=== PATIENT | male | born 1975 | race Caucasian/White ===

== ENCOUNTER 2017-01-23 12:32 | Emergency (ER) | payer MEDICAID ==
[2017-01-23 12:44] VITALS: BMI 26.4
[2017-01-23] MEDS ORDERED: Lidocaine 2% Inj (20ml) INFIL ONE (13:13)
--- NOTE | 2017-01-23 13:16 | C.PDOC ---
History Of Present Illness pt presents from PMD's office for incision and drainage to 2 abscess in the left axilla, have been increasing in size and pain for the last week. no prior episodes. no hx dm. no fever or chills. Time Seen by Provider: 01/23/17 13:04 Chief Complaint (Nursing): Abnormal Skin Integrity Past Medical History Vital Signs: Last Vital Signs Temp 98.2 F 01/23/17 14:02 Pulse 71 01/23/17 14:02 Resp 18 01/23/17 14:02 BP 120/69 01/23/17 14:02 Pulse Ox 100 01/23/17 14:32 - Medical History PMH: HTN, Hypercholesterolemia, Peripheral Edema ("LOCALIZED EDEMA"), Sleep Apnea (CPAP MACHINE @5CM H2O) Denies: Chronic Kidney Disease Surgical History: Coronary Stent (X3) - [facility] Procedures CONTRAST AORTOGRAM (06/19/14) INSERTION OF ONE VASCULAR STENT (06/19/14) INSRT OF DRUG-ELUTING CORON ARTERY STENTS(S) (06/19/14) LEFT HEART CARDIAC CATH (06/19/14) LT HEART ANGIOCARDIOGRAM (06/19/14) PERCUTANEOUS TRANSLUMINAL CORONARY ANGIOPLASTY [PTCA] (06/19/14) PROCEDURE ON SINGLE VESSEL (06/19/14) Family History: States: Unknown Family Hx - Social History Hx Alcohol Use: No (SOCIAL) Hx Substance Use: No - Immunization History Hx Tetanus Toxoid Vaccination: No Hx Influenza Vaccination: No Hx Pneumococcal Vaccination: No Physical Exam - Physical Exam Additional Physical Exam Comments: Constitutional: No acute distress. WDWN. Head: Normocephalic. Atraumatic. Eyes: PERRL. EOMI. ENT: Moist mucous membranes. Neck: Supple. Cardiovascular: Regular rate and rhythm. Chest: No tenderness. Respiratory: Clear to auscultation bilaterally. GI: Soft. Nontender. Nondistended. Normoactive bowel sounds. No rebound. No guarding. Back: No CVA and no mid-line tenderness. Musculoskeletal: No tenderness or swelling of extremities. Skin: . 2x1cm abscess to upper left axilla, flunctuant and surrounding erythema , 1cm pustular abscess to mid left axilla Neurologic: Alert, no focal deficit. ED Course And Treatment O2 Sat by Pulse Oximetry: 100 - Incision & Drainage Of Abscess Anesthesia: Lidocaine 2% Prep Used: Sterile Water, Betadine Procedure: Incised W/Scalpel Blade#: (11), Drained Pus, Irrigated Cavity W/ Saline, Probed To Break Up Loculations, Packed W/Gauze (1/4 packing) Medical Decision Making Medical Decision Making: pt with 2 abscesses in left axilla; distal abscess with scant drainage, proximal abscess about 1 ml pus; +erythema and warmth surrounding abscess, will start pt on antibiotics, with return to ed or pmd in 2 days for a wound check. Disposition Counseled Patient/Family Regarding: Diagnosis, Need For Followup, Rx Given - Disposition Referrals: India Mcqueen MD [Non-Staff] - Disposition: HOME/ ROUTINE Disposition Time: 13:49 Condition: IMPROVED Additional Instructions: Keep dressing on for next 2 days, unless becomes saturated, then remove and apply pressure and new dressing or return to ER for evaluaiton. Return to ER or PMD in 2 days for wound check. Take antibiotics and pain medications as directed. Prescriptions: Acetaminophen with Codeine [Tylenol with Codeine #3 Tablet] 1 each PO Q6 PRN #6 tablet PRN Reason: Pain, Severe (8-10) Cephalexin [cephalexin] 500 mg PO QID #28 cap Forms: [facility] (Belizean), General Discharge Instructions - Clinical Impression Clinical Impression: Axillary abscess - PA / COUNTY NURSE / Resident Statement MD/DO has reviewed & agrees with the documentation as recorded. - Scribe Statement The provider has reviewed the documentation as recorded by the Ildefonsoibsteven Waller All medical record entries made by the Ildefonsoibe were at my direction and personally dictated by me. I have reviewed the chart and agree that the record accurately reflects my personal performance of the history, physical exam, medical decision making, and the department course for this patient. I have also personally directed, reviewed, and agree with the discharge instructions and disposition.
[2017-01-23] MEDS ORDERED: Lidocaine 2% Inj (20ml) ONE (13:20)
[2017-01-23 14:02] VITALS: BP 120/69; PULSE 71; RESP 18; TEMP 98.2
[2017-01-23 14:33] VITALS: O2SAT 100
== END 2017-01-23 14:05 | disposition home or self-care (01) ==
LOC: C.ER 12:32
DX: L02.412 Cutaneous abscess of left axilla (principal)

== ENCOUNTER 2017-01-25 14:31 | Emergency (ER) | payer MEDICAID ==
[2017-01-25 14:32] VITALS: BMI 26.4
[2017-01-25 14:40] VITALS: BP 115/76; PULSE 100; RESP 20; TEMP 97.7; O2SAT 100
--- NOTE | 2017-01-25 15:12 | C.PDOC ---
History Of Present Illness 41 y/o male presents to the ED for left axilla wound check s/p I&D 2 days prior. Notes pain improved. No fever. Time Seen by Provider: 01/25/17 14:44 Chief Complaint (Nursing): Wound Check History Per: Patient History/Exam Limitations: no limitations Onset/Duration Of Symptoms: Days Ago (2) Current Symptoms Are (Timing): Gone Severity: None Recent travel outside of the [place]: No Additional History Per: Patient Past Medical History Reviewed: Historical Data, Nursing Documentation, Vital Signs Vital Signs: Last Vital Signs Temp 97.7 F 01/25/17 14:38 Pulse 100 H 01/25/17 14:38 Resp 20 01/25/17 14:38 BP 115/76 01/25/17 14:38 Pulse Ox 100 01/25/17 15:39 - Medical History PMH: HTN, Hypercholesterolemia, Peripheral Edema ("LOCALIZED EDEMA"), Sleep Apnea (CPAP MACHINE @5CM H2O) Denies: Chronic Kidney Disease Surgical History: Coronary Stent (X3) - [facility] Procedures CONTRAST AORTOGRAM (06/19/14) INSERTION OF ONE VASCULAR STENT (06/19/14) INSRT OF DRUG-ELUTING CORON ARTERY STENTS(S) (06/19/14) LEFT HEART CARDIAC CATH (06/19/14) LT HEART ANGIOCARDIOGRAM (06/19/14) PERCUTANEOUS TRANSLUMINAL CORONARY ANGIOPLASTY [PTCA] (06/19/14) PROCEDURE ON SINGLE VESSEL (06/19/14) Family History: States: Unknown Family Hx - Social History Hx Alcohol Use: No (SOCIAL) Hx Substance Use: No - Immunization History Hx Tetanus Toxoid Vaccination: No Hx Influenza Vaccination: No Hx Pneumococcal Vaccination: No Review Of Systems Constitutional: Negative for: Fever, Chills Physical Exam - Physical Exam Appears: Non-toxic, No Acute Distress Skin: Warm, Dry Head: Atraumatic, Normacephalic Eye(s): bilateral: Normal Inspection, EOMI Nose: Normal Oral Mucosa: Moist Chest: Symmetrical Respiratory: No Accessory Muscle Use Extremity: Normal ROM, Other (Left axilla: some erythema and peeled epidermis noted along the tape lines; packed wound centrally no surrounding erythema) Extremity: Bilateral: Normal Color And Temperature Neurological/Psych: Oriented x3, Normal Speech, Normal Motor, Normal Sensation ED Course And Treatment O2 Sat by Pulse Oximetry: 100 (RA) Pulse Ox Interpretation: Normal Progress Note: Plans: Bacitracin. Packing remoeved and irrigated the area. No purulent discharge noted. Wound was cleansed and bacitracin applied by RN. Patient is in no acute distress at this time and is currently afebrile. Patient was instructed to follow up with his PMD for further evaluation and to return if symptoms worsens. Disposition - Disposition Disposition: HOME/ ROUTINE Disposition Time: 15:11 Condition: STABLE Additional Instructions: Watch for signs of infection including redness and swelling. Keep area clean and dry. Finish antibiotics. Instructions: Abscess Incision and Drainage (ED) Forms: [employer] (French) - Clinical Impression Clinical Impression: Axillary abscess, Contact dermatitis - Scribe Statement The provider has reviewed the documentation as recorded by the Scribe Caroline markham All medical record entries made by the Scribe were at my direction and personally dictated by me. I have reviewed the chart and agree that the record accurately reflects my personal performance of the history, physical exam, medical decision making, and the department course for this patient. I have also personally directed, reviewed, and agree with the discharge instructions and disposition.
[2017-01-25] MEDS ORDERED: Bacitracin 500 Units/gm Oint Foilpak UD ONE (15:17)
[2017-01-25] MEDS ORDERED: Bacitracin Ointment 30 GM TUBE TOP STA (15:24)
== END 2017-01-25 15:27 | disposition home or self-care (01) ==
LOC: C.ER 14:31
DX: L02.412 Cutaneous abscess of left axilla (principal); L25.9 Unspecified contact dermatitis, unspecified cause; I10 Essential (primary) hypertension; E78.00 Pure hypercholesterolemia, unspecified